=== PATIENT | female | born 1990 | race African-American/Black ===

== ENCOUNTER 2016-11-30 00:39 | Emergency (ER) | payer SELFPAY ==
[~2016-11-30] VITALS: Ht 177.8 cm; Wt 149.7 kg
[~2016-11-30 00:39] MED LIST: MECL25TA3 PO; ONDA4TAB7 PO
[2016-11-30 01:31] VITALS: BP 175/99
[2016-11-30] MEDS ORDERED: ACETAMINOPHEN 325 MG TABLET. PO ONE (01:45)
[2016-11-30] MEDS ORDERED: ACET325T9 PO (02:16)
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
== END 2016-11-30 02:38 | disposition home or self-care (01) ==
LOC: ER 00:39
DX: S13.4XXA Sprain of ligaments of cervical spine, initial encounter (principal); S29.9XXA Unspecified injury of thorax, initial encounter; V89.2XXA Person injured in unspecified motor-vehicle accident, traffic, initial encounter; Y93.89 Activity, other specified; Y92.410 Unspecified street and highway as the place of occurrence of the external cause; Y99.8 Other external cause status
CPT/HCPCS: 81025; 96372; 99283-25